=== PATIENT | male | born 1995 | race African-American/Black ===

== ENCOUNTER 2016-11-05 19:42 | Emergency (ER) | payer OTHER ==
[2016-11-05 19:51] VITALS: BP 111/78; PULSE 92; RESP 16; TEMP 98.6; O2SAT 96
--- NOTE | 2016-11-05 20:10 | EDPHY ---
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 The patient denies additional injury. He has mild pain. He has no complaints of numbness or weakness. REVIEW OF SYSTEMS: Neuro: no headache, numbness, weakness Musculoskeletal: as above Skin: As above Source: Patient - Personal History Current Tetanus/Diphtheria Vaccine: Yes Current Tetanus Diphtheria and Acellular Pertussis (TDAP): Yes Tetanus Vaccine Date: <10 years - Medical/Surgical History Hx Asthma: No Hx Chronic Respiratory Disease: No Hx Diabetes: No Hx Cardiac Disease: No Hx Renal Disease: No Hx Cirrhosis: No Hx Alcoholism: No Hx HIV/AIDS: No Hx Splenectomy or Spleen Trauma: No Other PMH: ?migraines? - Social History Smoking Status: Never smoked - Physical Exam Exam: General: No acute distress Right hand: Superficial avulsion type laceration noted to the skin at the distal phalanx. No deep structures involved, normal nail matrix Neuro: Sensation intact to light touch Vascular: Normal capillary refill Constitutional: Initial Vital Signs Temperature (C) 37 C 11/05/16 19:46 Heart Rate 92 11/05/16 19:46 Respiratory Rate 16 11/05/16 19:46 Blood Pressure 111/78 11/05/16 19:46 O2 Sat (%) 96 11/05/16 19:46 O2 Delivery Mode Room Air Allergies/Adverse Reactions: morphine Allergy (Verified 11/05/16 19:51) Anaphylaxis Home Medications: Medication Instructions Recorded NK [No Known Home Meds] 11/05/16 Medical Decision Making Procedures: Procedure: Laceration repair with skin glue Verbal consent was obtained from the patient. The 1 cm curvilinear avulsion laceration on the distal aspect of the right 5th finger. The wound was irrigated per protocol There were no deep structures involved. No tendon injury was identified. The wound was repaired with tissue adhesive. The procedure was performed by myself. Departure - Departure Disposition: Home, Routine, Self-Care Clinical Impression: Finger laceration Qualifiers: Encounter type: initial encounter Qualified Code(s): S61.219A - Laceration without foreign body of unspecified finger without damage to nail, initial encounter Condition: Good Instructions: Skin Adhesive Care (ED)
[2016-11-05] MEDS ORDERED: SKIN ADHESIVE (DERMABOND) 1 EACH TP ONE (20:27)
== END 2016-11-05 20:57 | disposition home or self-care (01) ==
PROC: 0HQFXZZ Repair Right Hand Skin, External Approach (ICD-10-PCS; principal; 2016-11-05)
DX: S61.216A Laceration without foreign body of right little finger without damage to nail, initial encounter (principal); W27.8XXA Contact with other nonpowered hand tool, initial encounter; Y92.69 Other specified industrial and construction area as the place of occurrence of the external cause; Y99.0 Civilian activity done for income or pay; Y93.89 Activity, other specified